=== PATIENT | male | born 1975 | race Caucasian/White ===

== ENCOUNTER 2019-01-06 08:30 | Emergency (ER) | payer OTHER ==
[2019-01-06] MEDS ORDERED: LORazepam 1 MG TAB PO STA (08:55)
--- NOTE | 2019-01-06 08:57 | ED ---
General Adult HPI - General Chief complaint: Shortness of Breath Stated complaint: Sob/anxiety Time Seen by Provider: 01/06/19 08:35 Source: patient, RN notes reviewed Mode of arrival: ambulatory Limitations: no limitations - History of Present Illness Initial comments: This is a 43-year-old male presents emergency Department stating his history of panic attacks. Patient states she was at work he started having a panic attack started getting tingling in his fingers had tightness in his chest and felt so he couldn't get a full breath. Patient states she's a little bit better now but is in the emergency department. Patient states he recently moved up here and is without his Klonopin and he believes as well as having a panic attack. Patient denies any chest pressure or heaviness. Patient denies any fever chills. Patient denies being short of breath. Patient denies any abdominal pain patient denies nausea vomiting diarrhea. Patient denies any lightheadedness or dizziness. - Related Data Home Medications Medication Instructions Recorded Confirmed No Known Home Medications 01/06/19 01/06/19 Allergies Allergy/AdvReac Type Severity Reaction Status Date / Time No Known Allergies Allergy Verified 01/06/19 09:12 Review of Systems ROS Statement: Those systems with pertinent positive or pertinent negative responses have been documented in the HPI. ROS Other: All systems not noted in ROS Statement are negative. Past Medical History Past Medical History: No Reported History History of Any Multi-Drug Resistant Organisms: None Reported Past Surgical History: No Surgical Hx Reported Past Psychological History: Anxiety Smoking Status: Current every day smoker Past Alcohol Use History: Occasional Past Drug Use History: None Reported General Exam - General Exam Comments Initial Comments: GENERAL: Patient is well-developed and well-nourished. Patient is nontoxic and well- hydrated and is in mild distress. ENT: Neck is soft and supple. No significant lymphadenopathy is noted. Oropharynx is clear. Moist mucous membranes. Neck has full range of motion without eliciting any pain. EYES: The sclera were anicteric and conjunctiva were pink and moist. Extraocular movements were intact and pupils were equal round and reactive to light. Eyelids were unremarkable. PULMONARY: Unlabored respirations. Good breath sounds bilaterally. No audible rales rhonchi or wheezing was noted. CARDIOVASCULAR: There is a regular rate and rhythm without any murmurs gallops or rubs. ABDOMEN: Soft and nontender with normal bowel sounds. No palpable organomegaly was noted. There is no palpable pulsatile mass. SKIN: Skin is clear with no lesions or rashes and otherwise unremarkable. NEUROLOGIC: Patient is alert and oriented x3. Cranial nerves II through XII are grossly intact. Motor and sensory are also intact. Normal speech, volume and content. Symmetrical smile. MUSCULOSKELETAL: Normal extremities with adequate strength and full range of motion. No lower extremity swelling or edema. No calf tenderness. LYMPHATICS: No significant lymphadenopathy is noted PSYCHIATRIC: Patient is mildly anxious Limitations: no limitations Course Vital Signs 01/06/19 08:33 Temperature 97.9 F Pulse Rate 62 Respiratory 22 Rate Blood Pressure 144/63 O2 Sat by Pulse 96 Oximetry Medical Decision Making - Medical Decision Making EKG shows normal sinus rhythm at 74 bpm [place] interval is on a 36 QRS is 90 QT interval 390 QTC is 421. Patient's EKG shows no ST segment elevation or depression or T wave abnormalities are noted. Chest x-ray showed no acute abnormalities. I gave the patient 1 of Ativan and one pack and reevaluate the patient patient states it completely relaxed when all of a sudden his have resolved. Disposition Clinical Impression: Anxiety Disposition: HOME SELF-CARE Condition: Good Instructions (If sedation given, give patient instructions): Anxiety (ED) Is patient prescribed a controlled substance at d/c from ED?: No Referrals: None,Stated [Primary Care Provider] - 1-2 days Time of Disposition: 10:20
--- NOTE | 2019-01-06 09:50 | XR ---
EXAMINATION TYPE: XR chest 2V DATE OF EXAM: 01/06/2019 COMPARISON: None HISTORY: 43-year-old male difficulty breathing TECHNIQUE: PA and lateral views FINDINGS: Heart normal size. Aorta and pulmonary vasculature within normal limits. Scattered mild interstitial densities and peribronchial cuffing. No consolidation or pleural effusion. IMPRESSION: Mild interstitial prominence could represent bronchitis or asthma. No focal infiltrate to suggest pne umonia at this time.
[2019-01-06 10:37] VITALS: BP 132/77; PULSE 80; RESP 16; TEMP 98
== END 2019-01-06 10:37 | disposition home or self-care (01) ==
LOC: EC 08:30
DX: F41.9 Anxiety disorder, unspecified (principal); F17.200 Nicotine dependence, unspecified, uncomplicated
CPT/HCPCS: 71046; 93005; 99285

== ENCOUNTER 2021-02-14 19:15 | Emergency (ER) | payer OTHER ==
[2021-02-14 19:41] VITALS: BP 152/90; PULSE 50; RESP 16; TEMP 98.6
[2021-02-14] MEDS ORDERED: NALOXONE 0.4 MG/ML 1 ML VIAL IV STA (19:53)
[2021-02-14] MEDS ORDERED: SODIUM CHLORIDE 0.9% 1,000 ML IV ONE ×2 (19:53)
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
[2021-02-14 20:46] LABS: Basophils # (A) 0.1 k/uL (0-0.2); Basophils % (A) 1 %; Eosinophils # (A) 0.2 k/uL (0-0.7); Eosinophils % (A) 2 %; HCT 45.5 % (39.0-53.0); Lymphocytes # (A) 2.5 k/uL (1.0-4.8); Lymphocytes % (A) 27 %; MCHC 35.2 g/dL (31.0-37.0); MCV 91.1 fL (80.0-100.0); Mean Platelet Volume 8.7; Monocytes # (A) 0.7 k/uL (0-1.0); Monocytes % (A) 8 %; Neutrophils # (A) 5.5 k/uL (1.3-7.7); Neutrophils % (A) 61 %; Platelet Count 210 k/uL (150-450); RBC 4.99 m/uL (4.30-5.90); RDW 13.4 % (11.5-15.5); WBC 9.1 k/uL (3.8-10.6)
--- NOTE | 2021-02-14 21:03 | CT ---
EXAMINATION TYPE: CT brain wo con DATE OF EXAM: 02/14/2021 COMPARISON: None HISTORY: ams CT DLP: 2278.4 mGycm Automated exposure control for dose reduction was used. Ventricles and sulci appear normal. There is no mass effect nor midline shift. There is no sign of in tracranial hemorrhage. The calvarium is intact skull base is intact. IMPRESSION: Negative unenhanced head CT scan.
--- NOTE | 2021-02-14 22:21 | XR ---
EXAMINATION TYPE: XR chest 2V DATE OF EXAM: 02/14/2021 COMPARISON: 01/06/2019 HISTORY: Short of breath TECHNIQUE: FINDINGS: Heart and mediastinum are normal. Lungs are clear. Diaphragm is normal. Bony thorax is inta ct. IMPRESSION: Normal chest. No change.
[2021-02-14 23:43] LABS: ALT 22 U/L (4-49); AST 26 U/L (17-59); African American GFR (CKD) >90 (>60 ml/min/1.73 sqM); Albumin 4.9 g/dL (3.5-5.0); Alcohol <10 mg/dL; Alkaline Phosphatase 86 U/L (38-126); Anion Gap 15 mmol/L; Blood Urea Nitrogen 14 mg/dL (9-20); Calcium 10.1 mg/dL (8.4-10.2); Carbon Dioxide 19 mmol/L (22-30); Chloride 105 mmol/L (98-107); Glucose 114 mg/dL (74-99); Non-African American GFR(CKD) >90 (>60 ml/min/1.73 sqM); Potassium 3.7 mmol/L (3.5-5.1); Sodium 139 mmol/L (137-145); Total Bilirubin 1.3 mg/dL (0.2-1.3); Total Protein 7.8 g/dL (6.3-8.2)
== END 2021-02-14 22:53 | disposition left against medical advice (07) ==
LOC: EC 19:15
DX: R41.82 Altered mental status, unspecified (principal); F19.10 Other psychoactive substance abuse, uncomplicated; F15.10 Other stimulant abuse, uncomplicated; F11.10 Opioid abuse, uncomplicated; F41.9 Anxiety disorder, unspecified; F17.200 Nicotine dependence, unspecified, uncomplicated
CPT/HCPCS: 93005; 80053; 82140; 85025; 71046; 70450; 99285; G0480; 80320

== ENCOUNTER 2021-02-16 11:54 | Inpatient (IN) | payer MEDICAID, OTHER ==
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
[2021-02-16] MEDS ORDERED: IBUPROFEN 600 MG TAB PO STA (14:39)
[2021-02-16] MEDS ORDERED: LORazepam 1 MG TAB PO STA (14:52)
[2021-02-16] MEDS ORDERED: OLANZapine 7.5 MG TAB PO ONE (15:24)
[2021-02-16] MEDS ORDERED: LORazepam 2 MG/ML INJ IM STA (17:23)
[2021-02-16] MEDS ORDERED: LORazepam 2 MG/ML INJ IV STA ×3 (19:51→23:17)
[2021-02-16] MEDS ORDERED: PHENobarbital SODIUM 130 MG/ML 1 ML VIAL IM STA (23:48)
[2021-02-17] MEDS ORDERED: diphenhydrAMINE 50 MG/ML 1 ML VIAL IVP STA (00:39)
[2021-02-17] MEDS ORDERED: PHENobarbital SODIUM 130 MG/ML 1 ML VIAL IV STA (02:44)
[2021-02-17] MEDS ORDERED: SODIUM CHLORIDE 0.9% IV ONE (03:00)
[2021-02-17] MEDS ORDERED: PHENOBARBITAL SODIUM IV ONE (03:00)
[2021-02-17] MEDS ORDERED: MAG HYDROX/AL HYDROX/SIMETH 30 ML CUP PO PRN (12:07)
[2021-02-17] MEDS ORDERED: MAGNESIUM HYDROXIDE 2,400 MG/10 ML CUP PO PRN (12:07)
[2021-02-17] MEDS ORDERED: LORazepam 2 MG/ML INJ IM PRN (12:12)
[2021-02-17] MEDS ORDERED: HALOPERIDOL LACTATE 5 MG/ML 1 ML VIAL IM PRN (12:12)
[2021-02-17] MEDS ORDERED: OLANZapine ODT 5 MG TAB PO STA (14:08)
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
[2021-02-17] MEDS: OLANZapine ODT 5 MG TAB PO SCH (21:49)
[2021-02-18] MEDS: LORazepam 1 MG TAB PO PRN ×2 (01:02→23:46)
[2021-02-18 01:14] VITALS: RESP 16
[2021-02-18] MEDS: haloperidoL 5 MG TAB PO PRN (01:57)
[2021-02-18] MEDS ORDERED: LORazepam 2 MG/ML INJ IM STA (03:10)
[2021-02-18] MEDS ORDERED: HALOPERIDOL LACTATE 5 MG/ML 1 ML VIAL IM ONE (03:11)
--- NOTE | 2021-02-18 04:25 | P.PN ---
Progress Note - Text Progress Note Date: 02/17/21 Patient is and the quiet room, per nursing staff is inappropriate for evaluation at this time
[2021-02-18] MEDS: OLANZapine ODT 5 MG TAB PO SCH ×2 (13:18→23:45)
[2021-02-18] MEDS: NICOTINE 21MG/24HR PATCH TRANSDERM SCH (16:07)
[2021-02-19] MEDS: haloperidoL 5 MG TAB PO PRN (02:06)
[2021-02-19] MEDS: NICOTINE 21MG/24HR PATCH TRANSDERM SCH (10:14)
[2021-02-19] MEDS: OLANZapine ODT 5 MG TAB PO SCH ×2 (10:14→22:17)
[2021-02-19] MEDS: LORazepam 1 MG TAB PO PRN ×2 (10:15→22:19)
--- NOTE | 2021-02-19 10:57 | P.PN ---
Progress Note - Text Progress Note Date: 02/18/21 Clinical Problems: Unspecified psychotic disorder, rule out methamphetamine- induced ptotic disorder, methamphetamine use disorder, rule out primary psychotic disorder such as schizophrenia or bipolar disorder Interim history: I reviewed the medical record and attempted to interview the patient. He was asleep in the quiet room with 1-1 staff in attendance. According to nursing staff he was agitated, confused and delusional throughout much the night. His management required administration of both intramuscular and oral Haldol and Ativan. He has not had a physical examination or consented to laboratory testing due to the severity of his disorganization. Mental status exam: He presented as a disheveled appearing 45-year-old male who is laying comfortably in bed to the quiet room. He was not arousable at time. Assessment: We suspect that he is acute confusional state (with delusions and hallucinations) is related to substance use including methamphetamine. However, he has not submitted urine sample for testing he continues to have periods of agitation and confusion necessitating oral and intramuscular administration of medications. Plan: He was admitted under involuntary status and we should aid with the probate court hearing. Continue with one-to-one supervision due to the severity of his confusion and agitation. Continue Zyprexa 5 mg sublingual twice a day and titrated according to clinical response and tolerance. Current show him to complete the physical examination, allow blood draw and provided a sample for urine drug testing. Obtain collateral information from friends or family if possible.
[2021-02-19 11:21] LABS: ALT 22 U/L (4-49); AST 27 U/L (17-59); African American GFR (CKD) >90 (>60 ml/min/1.73 sqM); Albumin 4.3 g/dL (3.5-5.0); Alkaline Phosphatase 71 U/L (38-126); Anion Gap 7 mmol/L; Blood Urea Nitrogen 10 mg/dL (9-20); Calcium 9.4 mg/dL (8.4-10.2); Carbon Dioxide 23 mmol/L (22-30); Chloride 107 mmol/L (98-107); Glucose 101 mg/dL (74-99); Non-African American GFR(CKD) >90 (>60 ml/min/1.73 sqM); Potassium 3.5 mmol/L (3.5-5.1); Sodium 137 mmol/L (137-145); Total Bilirubin 0.4 mg/dL (0.2-1.3); Total Protein 7.1 g/dL (6.3-8.2)
[2021-02-19 11:40] LABS: Basophils # (A) 0.1 k/uL (0-0.2); Basophils % (A) 1 %; Eosinophils # (A) 0.3 k/uL (0-0.7); Eosinophils % (A) 3 %; HCT 46.4 % (39.0-53.0); HGB 16.1 gm/dL (13.0-17.5); Lymphocytes # (A) 2.7 k/uL (1.0-4.8); Lymphocytes % (A) 27 %; MCH 32.1 pg (25.0-35.0); MCHC 34.7 g/dL (31.0-37.0); MCV 92.6 fL (80.0-100.0); Mean Platelet Volume 7.6; Monocytes # (A) 0.6 k/uL (0-1.0); Monocytes % (A) 6 %; Neutrophils # (A) 6.4 k/uL (1.3-7.7); Neutrophils % (A) 63 %; Platelet Count 249 k/uL (150-450); RBC 5.01 m/uL (4.30-5.90); RDW 14.1 % (11.5-15.5); WBC 10.2 k/uL (3.8-10.6)
--- NOTE | 2021-02-19 14:18 | P.PN ---
Progress Note - Text Progress Note Date: 02/19/21 Clinical Problems: Unspecified psychotic disorder, rule out methamphetamine- induced ptotic disorder, methamphetamine use disorder, rule out primary psychotic disorder such as schizophrenia or bipolar disorder Interim history: I reviewed the medical record and attempted to interview the patient. He was irritable but cooperative with the interview. He has been demanding discharge and became increasingly angry today when we told him he would not be discharged toda. He received milligrams Ativan and 5 mg of Zyprexa. I was unable to further clarify his admission history today. He was guarded and would not volunteer information. He would not answer whether he was using methamphetamine prior to admission. Mental status exam: He presented as a guarded and irritable 45-year-old male who is laying comfortably in bed to the quiet room. He made eye contact and appeared to attend to the interview. He had a blunted facial expression. He had psychomotor retardation but no abnormal involuntary movements. Her speech was nonspontaneous with normal rate and rhythm. His affect was irritable. He did not express suicidal ideation or wishes. He did not express homicidal ideation. He denied feeling hopeless, helpless or worthless. He ruminated about discharge. He did not express ideas reference, paranoid ideation or delusions. His thinking was concrete and associations were guarded. Assessment: We suspect that he is acute confusional state (with delusions and hua llucinations) is related to substance use including methamphetamine. He is yet to submit a urine sample for testing. Of the peers of agitation have decreased in frequency and intensity. Plan: He was admitted under involuntary status and we should aid with the probate court hearing. Continue with one-to-one supervision due to the severity of his confusion and agitation. Continue Zyprexa 5 mg sublingual twice a day and titrated according to clinical response and tolerance. Encourage him to complete the physical examination, allow blood draw and provided a sample for urine drug testing. Obtain collateral information from friends or family if possible. Consider discharge 02/20/2021
[2021-02-19 22:31] LABS: Hemoglobin A1C 5.4 % (4.0-6.0)
[2021-02-20] MEDS: haloperidoL 5 MG TAB PO PRN ×2 (01:01→20:13)
--- NOTE | 2021-02-20 03:23 | P.MDCNMH ---
History of Present Illness H&P Date: 02/20/21 Chief Complaint: Ear fullness 45-year-old male no significant past medical history Patient came in to the hospital due to feeling very anxious with paranoid ideation. Patient is being seen now as she is complaining of left ear fullness and pain he denies any nasal congestion and runny nose coughing sore throat fevers or chills he denies any chest pain or trouble breathing however he does report frequent urinary infection his ear has been bothering him for days now and left side with throbbing pain no drainage. He doesn't report any changes in hearing or tinnitus Review of Systems Pertinent positives as noted in HPI. All other systems were reviewed and are negative Past Medical History Past Medical History: No Reported History History of Any Multi-Drug Resistant Organisms: None Reported Past Surgical History: No Surgical Hx Reported Past Psychological History: Anxiety Smoking Status: Current every day smoker Past Alcohol Use History: Occasional Past Drug Use History: None Reported - Past Family History Family Family Medical History: No Reported History Medications and Allergies Home Medications Medication Instructions Recorded Confirmed Type No Known Home Medications 02/16/21 02/17/21 History Allergies Allergy/AdvReac Type Severity Reaction Status Date / Time No Known Allergies Allergy Verified 02/17/21 15:13 Physical Exam Constitutional: No acute distress, conversant, pleasant Eyes: Anicteric sclerae, moist conjunctiva, Pupils equal round reactive to light ENMT: NC/AT, otoscopic exam of the left ear shows dull tympanic membrane with slight surrounding erythema no drainage, no tenderness to palpation of the facial sinuses Oropharynx clear, no erythema, or exudates, poor dental hygiene with most of his molar teeth are recently extracted no erythema or swelling of the gums Neck: Supple, FROM, no masses, or JVD No carotid bruits No thyromegaly Lungs: Clear to auscultation Clear to percussion Normal respiratory effort, no accessory muscle use Cardiovascular: Heart regular in rate and rhythm, No murmurs, gallops, or rubs No peripheral edema Abdominal: Soft Nontender, no guarding, rebound or rigidity Abdomen moving with respiration Normoactive bowel sounds No hepatomegaly, No splenomegaly No palpable mass No abdominal wall hernia noted Skin: Normal temperature, tone, texture, turgor No induration No subcutaneous nodules No rash, lesions No ulcers Extremities: No digital cyanosis No clubbing Pedal pulses intact and symmetrical Radial pulses intact and symmetrical No calf tenderness Psychiatric: Alert and oriented to person, place and time Avoids eye contact Neuro Muscles Strength 5/5 in all 4 extremities Sensation to light touch grossly present throughout Cranial nerves II-XII grossly intact No focal sensory deficits Lymphatics: no palpable cervical or supraclavicular , or inguinal lymph nodes Cranial Nerve Examination - Cranial Nerves Cranial Nerve II- Optic: Intact Cranial Nerve III- Oculomotor: Intact Cranial Nerve IV- Trochlear: Intact Cranial Nerve V- Trigeminal: Intact Cranial Nerve - Abducens: Intact Cranial Nerve VII- Facial: Intact Cranial Nerve VIII- Auditory: Intact Cranial Nerve IX- Glossopharyngeal: Intact Cranial Nerve X- Vagus: Intact Cranial Nerve XI- Accessory: Intact Cranial Nerve XII- Hypoglossal: Intact Results CBC & Chem 7: 02/19/21 10:02 02/19/21 10:02 Labs: Abnormal Lab Results - Last 24 Hours (Table) 02/19/21 Range/Units 10:02 Creatinine 0.61 L (0.66-1.25) mg/dL Glucose 101 H (74-99) mg/dL Assessment and Plan Assessment: Acute otitis media of the left ear Amoxicillin, 500 mg 3 times a day for 7-10 days Advil for pain as needed Benadryl 25 mg every 6 hours as needed for congestion and fullness in the ear Anxiety and paranoid ideation Management per psych Labs reviewed Monitor for fever Thank you for allowing us to participate in the care of this patient. We will follow peripherally. Do not hesitate to contact us with questions. Someone can be reached from the [facility] hospitalist group at all hours of the day at [phone].
[2021-02-20] MEDS: diphenhydrAMINE 25 MG CAP PO PRN (03:29)
[2021-02-20] MEDS: AMOXICILLIN 500 MG CAP PO SCH ×4 (03:29→20:13)
[2021-02-20] MEDS: IBUPROFEN 400 MG TAB PO PRN ×4 (03:29→23:45)
[2021-02-20] MEDS: OLANZapine ODT 5 MG TAB PO SCH ×2 (09:07→20:13)
[2021-02-20] MEDS: NICOTINE 21MG/24HR PATCH TRANSDERM SCH (09:07)
[2021-02-20] MEDS: LORazepam 1 MG TAB PO PRN ×2 (09:11→23:45)
[2021-02-20] MEDS: ACETAMINOPHEN TAB 325 MG TAB PO PRN (11:48)
--- NOTE | 2021-02-20 14:12 | P.PN ---
Progress Note - Text Progress Note Date: 02/20/21 Interval History: Patient was seen in the quiet room, resting in bed. The patient is stating that he is feeling significantly better. He is unable to recall events leading to this hospitalization, and vehemently denies the use of any substances. He is currently denying any suicidal or homicidal ideation, intention, and/or plan. He is denying any auditory or visual hallucinations. He is denying any paranoia or other delusions. He reports no issues with his appetite but states that he has difficulty sleeping. He is intermittently present at [employer]. He has been adherent with his medications it is not reporting any significant side effects at this time. Mental Status Exam: General Appearance: Patient appears to be stated age is alert, directable, and cooperative. Multiple tattoos. Behavior: Patient is calmly lying in bed without any agitated behavior. Poor eye contact. Speech: Patient's speech is fluent and nonpressured. Nonspontaneous, low in volume. Mood/Affect: Mood is improving mildly, affect is congruent and constricted. Suicidality/Homicidality: Patient denies having any suicidal or homicidal ideation intent or plan. Perceptions: Patient denies any visual hallucinations [and denies any auditory hallucinations Though content/process: There is no evidence of any delusional thought content and thought process is linear and goal-directed. Memory and concentration: AOX3, grossly intact for the purposes of this session Judgment and insight: Improving mildly Vital Signs Temp 97.9 F 02/18/21 01:13 Pulse 83 02/18/21 01:13 Resp 16 02/18/21 01:13 BP 115/75 02/18/21 01:13 Pulse Ox 98 02/16/21 11:55 Assessment Acute psychosis, suspect secondary to substance abuse Plan: -Patient continues to meet criteria for inpatient psychiatric admission for symptom stabilization and safety. Patient has been petitioned and certified. He has yet to defer. -Medications: Continue Zyprexa Zydis 5 mg by mouth twice a day for psychosis/mood stabilization -When necessary Ativan and Haldol for agitation/aggression. -NRT - nicotine patch -SW on board for discharge planning. Encouraged the patient to participate in [employer].
[2021-02-21] MEDS: NICOTINE 21MG/24HR PATCH TRANSDERM SCH ×2 (08:04→16:34)
[2021-02-21] MEDS: AMOXICILLIN 500 MG CAP PO SCH ×3 (08:05→22:39)
[2021-02-21] MEDS: OLANZapine ODT 5 MG TAB PO SCH ×2 (08:05→21:15)
[2021-02-21] MEDS: ACETAMINOPHEN TAB 325 MG TAB PO PRN ×2 (08:07→13:45)
--- NOTE | 2021-02-21 09:52 | P.PN ---
Progress Note - Text Progress Note Date: 02/21/21 Interval History: Patient was seen in his room and was resting in bed without any agitation. Cu rrently the patient is quite somnolent and difficult to arouse. He does respond with one-word replies. He denies any suicidal or homicidal ideation, intention, and/or plan. He reports no auditory or visual hallucinations. He denies any paranoia or delusions. He reports no issues with his medications aside from mild sedation. He continues to be isolative to himself. He has yet to defer. Mental Status Exam: General Appearance: Patient appears to be stated age is somnolent, but directable, and cooperative. Multiple tattoos. Behavior: Patient is calmly lying in bed without any agitated behavior. Poor eye contact. Speech: Patient's speech is fluent and nonpressured. Nonspontaneous, low in volume. One-word responses. Mood/Affect: Mood is improving mildly, affect is congruent and constricted. Suicidality/Homicidality: Patient denies having any suicidal or homicidal ideation intent or plan. Perceptions: Patient denies any visual hallucinations and denies any auditory hallucinations Though content/process: There is no evidence of any delusional thought content and thought process is linear and goal-directed. Memory and concentration: AOX3, grossly intact for the purposes of this session Judgment and insight: Improving mildly Vital Signs Temp 97.9 F 02/18/21 01:13 Pulse 83 02/18/21 01:13 Resp 16 02/18/21 01:13 BP 115/75 02/18/21 01:13 Pulse Ox 98 02/16/21 11:55 Assessment Acute psychosis, suspect secondary to substance abuse Plan: -Patient continues to meet criteria for inpatient psychiatric admission for symptom stabilization and safety. Patient has been petitioned and certified. He has yet to defer. Anticipate discharge once patient defers. -Medications: Continue Zyprexa Zydis 5 mg by mouth twice a day for psychosis/mood stabilizati on -When necessary Ativan and Haldol for agitation/aggression. -NRT - nicotine patch -SW on board for discharge planning. Encouraged the patient to participate in milieu.
[2021-02-21] MEDS: LORazepam 1 MG TAB PO PRN ×2 (13:46→23:25)
[2021-02-21] MEDS: IBUPROFEN 400 MG TAB PO PRN ×2 (15:05→22:40)
[2021-02-21] MEDS: haloperidoL 5 MG TAB PO PRN (16:49)
[2021-02-21] MEDS: diphenhydrAMINE 25 MG CAP PO PRN (22:40)
[2021-02-22] MEDS: NICOTINE 21MG/24HR PATCH TRANSDERM SCH (07:54)
[2021-02-22] MEDS: OLANZapine ODT 5 MG TAB PO SCH (07:54)
[2021-02-22] MEDS: AMOXICILLIN 500 MG CAP PO SCH ×3 (07:54→22:00)
[2021-02-22] MEDS: IBUPROFEN 400 MG TAB PO PRN ×3 (07:55→22:00)
[2021-02-22] MEDS: LORazepam 1 MG TAB PO PRN ×3 (07:55→22:00)
--- NOTE | 2021-02-22 09:45 | P.PN ---
Progress Note - Text Progress Note Date: 02/22/21 Interval History: Patient was seen in his room and was resting in bed without any agitation. Pat reernestina states he plans to defer mental health court tomorrow. He is reporting elevated anxiety and difficulty sleeping. He endorses mild paranoia. He does ask if his zyprexa can be increased. He is otherwise not reporting any suicidal or homicidal ideation, intention, and/or plan. He is not reporting any auditory or visual hallucinations. He has been adherent with his medications and is not reporting any side effects at this time. Mental Status Exam: General Appearance: Patient appears to be stated age is alert, awake and cooperative. Multiple tattoos. Behavior: Patient is calmly lying in bed without any agitated behavior. Good eye contact. Speech: Patient's speech is fluent and nonpressured. Nonspontaneous, low in volume. Mood/Affect: Mood is improving mildly, affect is congruent and constricted. Suicidality/Homicidality: Patient denies having any suicidal or homicidal ideation intent or plan. Perceptions: Patient denies any visual hallucinations and denies any auditory hallucinations Though content/process: There is no evidence of any delusional thought content and thought process is linear and goal-directed. Memory and concentration: AOX3, grossly intact for the purposes of this session Judgment and insight: Improving mildly Vital Signs Temp 97.8 F 02/21/21 23:31 Pulse 96 02/21/21 23:31 Resp 16 02/21/21 23:31 BP 120/80 02/21/21 23:31 Pulse Ox 98 02/16/21 11:55 Assessment Acute psychosis, suspect secondary to substance abuse Plan: -Patient continues to meet criteria for inpatient psychiatric admission for symptom stabilization and safety. Patient has been petitioned and certified. He has yet to defer. Anticipate discharge once patient defers. -Medications: Increase zyprexa zydis to 5 mg in the morning and 10 mg at bedtime for psychosis/mood stabilization -When necessary Ativan and Haldol for agitation/aggression. -NRT - nicotine patch -SW on board for discharge planning. Encouraged the patient to participate in milieu.
[2021-02-22] MEDS ORDERED: OLANZapine ODT 10 MG TAB PO SCH (21:00)
[2021-02-23] MEDS: haloperidoL 5 MG TAB PO PRN ×2 (00:26→13:27)
[2021-02-23] MEDS: diphenhydrAMINE 25 MG CAP PO PRN (01:47)
[2021-02-23 07:19] VITALS: BP 118/59; PULSE 99; TEMP 97.7
[2021-02-23] MEDS: NICOTINE 21MG/24HR PATCH TRANSDERM SCH (07:48)
[2021-02-23] MEDS: ACETAMINOPHEN TAB 325 MG TAB PO PRN (07:48)
[2021-02-23] MEDS: AMOXICILLIN 500 MG CAP PO SCH (08:31)
[2021-02-23] MEDS: LORazepam 1 MG TAB PO PRN (08:31)
[2021-02-23] MEDS ORDERED: OLANZapine ODT 5 MG TAB PO SCH (09:00)
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
== END 2021-02-23 15:41 | disposition home or self-care (01) | DRG 885 ==
LOC: EC 11:54 → 3MHU 02-17 12:02
PROVIDERS: ADMIT Psychiatry & Neurology Psychiatry; ATTEND Psychiatry & Neurology Psychiatry
DX: F23 Brief psychotic disorder (principal); F11.10 Opioid abuse, uncomplicated; F15.10 Other stimulant abuse, uncomplicated; F17.200 Nicotine dependence, unspecified, uncomplicated; F41.9 Anxiety disorder, unspecified; Z78.1 Physical restraint status; Z20.822 Contact with and (suspected) exposure to COVID-19
CPT/HCPCS: 80053; 82075; 83036; 84443; 85025; 87635; 99285

== ENCOUNTER 2021-03-12 20:02 | Observation (INO) | payer OTHER ==
[2021-03-12 20:12] LABS: Glucose,Whole Blood 73 mg/dL (75-99)
[2021-03-12 21:18] LABS: ALT 37 U/L (4-49); AST 40 U/L (17-59); African American GFR (CKD) >90 (>60 ml/min/1.73 sqM); Albumin 4.5 g/dL (3.5-5.0); Alcohol <10 mg/dL; Alkaline Phosphatase 81 U/L (38-126); Anion Gap 8 mmol/L; Blood Urea Nitrogen 3 mg/dL (9-20); Calcium 9.8 mg/dL (8.4-10.2); Carbon Dioxide 26 mmol/L (22-30); Chloride 109 mmol/L (98-107); Glucose 71 mg/dL (74-99); Non-African American GFR(CKD) >90 (>60 ml/min/1.73 sqM); Potassium 4.4 mmol/L (3.5-5.1); Sodium 143 mmol/L (137-145); Total Bilirubin 0.3 mg/dL (0.2-1.3); Total Protein 7.1 g/dL (6.3-8.2)
[2021-03-12 21:19] LABS: Basophils % (A) 0 %; Eosinophils # (A) 0.2 k/uL (0-0.7); Eosinophils % (A) 4 %; HCT 39.8 % (39.0-53.0); HGB 13.9 gm/dL (13.0-17.5); Lymphocytes # (A) 1.9 k/uL (1.0-4.8); Lymphocytes % (A) 34 %; MCH 33.2 pg (25.0-35.0); MCV 94.9 fL (80.0-100.0); Mean Platelet Volume 6.7; Monocytes # (A) 0.5 k/uL (0-1.0); Monocytes % (A) 8 %; Neutrophils # (A) 2.9 k/uL (1.3-7.7); Neutrophils % (A) 50 %; Platelet Count 321 k/uL (150-450); RBC 4.19 m/uL (4.30-5.90); RDW 14.3 % (11.5-15.5); WBC 5.6 k/uL (3.8-10.6)
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
[2021-03-12 22:07] LABS: Magnesium 2.1 mg/dL (1.6-2.3); Phosphorus 3.7 mg/dL (2.5-4.5)
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
[2021-03-12] MEDS ORDERED: SODIUM CHLORIDE 0.9% 1,000 ML IV ONE (23:39)
[2021-03-13 07:54] VITALS: BP 106/71; PULSE 71; RESP 18; TEMP 97.4
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
== END 2021-03-13 12:33 | disposition home or self-care (01) ==
LOC: EC 20:02 → 6NMEDSUR 23:39
PROVIDERS: ADMIT Hospitalist; ATTEND Hospitalist
DX: R41.82 Altered mental status, unspecified (principal); F15.10 Other stimulant abuse, uncomplicated; F13.10 Sedative, hypnotic or anxiolytic abuse, uncomplicated; F11.10 Opioid abuse, uncomplicated; R40.0 Somnolence; V47.5XXA Car driver injured in collision with fixed or stationary object in traffic accident, initial encounter; Y92.410 Unspecified street and highway as the place of occurrence of the external cause; F17.200 Nicotine dependence, unspecified, uncomplicated; F41.9 Anxiety disorder, unspecified; M54.9 Dorsalgia, unspecified; Z79.899 Other long term (current) drug therapy; Z86.59 Personal history of other mental and behavioral disorders
CPT/HCPCS: 96360; 96361; 99285; 36415; 93005; 80053; 82550; 83735; 84100; 84484; 85025; 80320; 72125; 70450; 71260; 74177; G0378; Q9967

== ENCOUNTER 2021-04-12 08:32 | Emergency (ER) | payer OTHER ==
[2021-04-12 08:40] VITALS: TEMP 98.3
[2021-04-12] MEDS ORDERED: SODIUM CHLORIDE 0.9% 1,000 ML IV STA (08:43)
--- NOTE | 2021-04-12 08:53 | ED ---
General Adult HPI - General Chief complaint: Overdose Stated complaint: overdose Time Seen by Provider: 04/12/21 08:35 Source: patient, EMS Mode of arrival: EMS Limitations: no limitations - History of Present Illness Initial comments: Patient is a 45-year-old male who presents to the emergency department as a possible overdose. EMS provided the history. They state that the patient was going into the local convenience store. Staff are very familiar with the patient may state that he was acting odd. He then crouch down onto the floor and went unresponsive. EMS arrived and found that he had respirations of 4. His oxygen saturation was 60%. They did give him one of intranasal Narcan with improvement in the patient's mentation. He denies taking any illicit drugs today. Denies taking any prescription medications other than his Seroquel which he took last night. He has been on this medication for a month and denies no previous issues with it. He remembers going into the convenience store to get a Slurpie and use the DAVIS. States he does not remember much after this. Denies previous history of cardiac disease. The remainder of the HPI is limited - Related Data Previous Rx's Medication Instructions Recorded Nicotine 21Mg/24Hr Patch [Habitrol] 1 patch TRANSDERM DAILY 30 Days 02/23/21 patch OLANZapine ODT [ZyPREXA Zydis] 5 mg PO DAILY 30 Days tab 02/23/21 OLANZapine ODT [ZyPREXA Zydis] 10 mg PO HS 30 Days tab 02/23/21 Allergies Allergy/AdvReac Type Severity Reaction Status Date / Time No Known Allergies Allergy Verified 04/12/21 08:40 Review of Systems ROS Statement: Those systems with pertinent positive or pertinent negative responses have been documented in the HPI. ROS Other: All systems not noted in ROS Statement are negative. Past Medical History Past Medical History: No Reported History History of Any Multi-Drug Resistant Organisms: None Reported Past Surgical History: No Surgical Hx Reported Past Anesthesia/Blood Transfusion Reactions: No Reported Reaction Past Psychological History: Anxiety Smoking Status: Current every day smoker Past Drug Use History: Marijuana - Past Family History Family Family Medical History: No Reported History General Exam Limitations: altered mental status General appearance: alert, in no apparent distress, other (appears to have some sedation. Mild slurred speech. a+ox3. ) Head exam: Present: atraumatic, normocephalic, normal inspection Eye exam: Present: normal appearance, PERRL, EOMI. Absent: scleral icterus, conjunctival injection, periorbital swelling ENT exam: Present: normal exam, mucous membranes moist Neck exam: Present: normal inspection. Absent: tenderness, meningismus, lymphadenopathy Respiratory exam: Present: normal lung sounds bilaterally. Absent: respiratory distress, wheezes, rales, rhonchi, stridor Cardiovascular Exam: Present: normal rhythm, tachycardia Extremities exam: Present: normal inspection, full ROM, normal capillary refill. Absent: tenderness, pedal edema, joint swelling, calf tenderness Neurological exam: Present: alert, oriented X3, CN II-XII intact Skin exam: Present: warm, diaphoretic Course Vital Signs 04/12/21 04/12/21 04/12/21 08:33 09:07 09:33 Temperature 98.3 F Pulse Rate 120 H 105 H 94 Pulse Rate [ Nutrition Associate ] Respiratory 12 14 15 Rate Blood Pressure 142/115 122/78 124/82 O2 Sat by Pulse 97 95 93 L Oximetry 04/12/21 04/12/21 04/12/21 10:13 10:18 11:05 Temperature 98.3 F Pulse Rate 89 87 Pulse Rate [ 86 Nutrition Associate ] Respiratory 15 15 Rate Blood Pressure 113/77 110/77 O2 Sat by Pulse 94 L 95 Oximetry EKG Findings - EKG Comments: EKG Findings:: EKG demonstrates a sinus tachycardia with a ventricular rate of 109. KS interval 148. QRS 94. QTC of 47. No acute ST segment elevations or depressions Medical Decision Making - Medical Decision Making Upon arrival the patient is placed into room #1. A thorough history and physical exam is performed. Patient is alert and oriented at this time. We did request laboratory studies, 12-lead EKG and a chest x-ray. Patient does comply. Laboratory studies are reviewed. CK is 188. Chest x-ray demonstrates no acute process. Patient is observed for 2 hours. Requesting a urine sample however the patient is refusing. He is also refusing straight cath. He does admit that last night he used heroin, methamphetamines, Xanax, THC and took his Seroquel (prescribed dose). Patient does remain alert and oriented after 2 hours of observation and therefore will be discharged home. Patient does have an appo intment at [facility] at noon. He is instructed to follow-up with his primary care doctor. Stop using illicit drugs. Return to the emergency room for any new or worsening symptoms - Lab Data Result diagrams: 04/12/21 08:45 04/12/21 08:45 Lab Results 04/12/21 04/12/21 04/12/21 Range/Units 08:45 08:45 08:45 WBC 8.0 (3.8-10.6) k/uL RBC 4.00 L (4.30-5.90) m/uL Hgb 13.2 (13.0-17.5) gm/dL Hct 39.0 (39.0-53.0) % MCV 97.5 (80.0-100.0) fL MCH 32.9 (25.0-35.0) pg MCHC 33.8 (31.0-37.0) g/dL RDW 14.3 (11.5-15.5) % Plt Count 324 (150-450) k/uL MPV 7.0 Neutrophils % 46 % Lymphocytes % 38 % Monocytes % 7 % Eosinophils % 6 % Basophils % 1 % Neutrophils # 3.7 (1.3-7.7) k/uL Lymphocytes # 3.1 (1.0-4.8) k/uL Monocytes # 0.6 (0-1.0) k/uL Eosinophils # 0.5 (0-0.7) k/uL Basophils # 0.1 (0-0.2) k/uL Poikilocytosis Slight Sodium 138 (137-145) mmol/L Potassium 3.8 (3.5-5.1) mmol/L Chloride 104 (98-107) mmol/L Carbon Dioxide 26 (22-30) mmol/L Anion Gap 8 mmol/L BUN 9 (9-20) mg/dL Creatinine 0.85 (0.66-1.25) mg/dL Est GFR (CKD-EPI)AfAm >90 (>60 ml/min/1.73 sqM) Est GFR (CKD-EPI)NonAf >90 (>60 ml/min/1.73 sqM) Glucose 80 (74-99) mg/dL Plasma Lactic Acid Joni 1.1 (0.7-2.0) mmol/L Calcium 9.1 (8.4-10.2) mg/dL Total Bilirubin 0.6 (0.2-1.3) mg/dL AST 33 (17-59) U/L ALT 23 (4-49) U/L Alkaline Phosphatase 60 (38-126) U/L Creatine Kinase 188 H (55-170) U/L Troponin I (0.000-0.034) ng/mL Total Protein 6.8 (6.3-8.2) g/dL Albumin 4.2 (3.5-5.0) g/dL Salicylates <1.0 mg/dL Acetaminophen <10.0 ug/mL Serum Alcohol <10 mg/dL 04/12/21 Range/Units 08:45 WBC (3.8-10.6) k/uL RBC (4.30-5.90) m/uL Hgb (13.0-17.5) gm/dL Hct (39.0-53.0) % MCV (80.0-100.0) fL MCH (25.0-35.0) pg MCHC (31.0-37.0) g/dL RDW (11.5-15.5) % Plt Count (150-450) k/uL MPV Neutrophils % % Lymphocytes % % Monocytes % % Eosinophils % % Basophils % % Neutrophils # (1.3-7.7) k/uL Lymphocytes # (1.0-4.8) k/uL Monocytes # (0-1.0) k/uL Eosinophils # (0-0.7) k/uL Basophils # (0-0.2) k/uL Poikilocytosis Sodium (137-145) mmol/L Potassium (3.5-5.1) mmol/L Chloride (98-107) mmol/L Carbon Dioxide (22-30) mmol/L Anion Gap mmol/L BUN (9-20) mg/dL Creatinine (0.66-1.25) mg/dL Est GFR (CKD-EPI)AfAm (>60 ml/min/1.73 sqM) Est GFR (CKD-EPI)NonAf (>60 ml/min/1.73 sqM) Glucose (74-99) mg/dL Plasma Lactic Acid Joni (0.7-2.0) mmol/L Calcium (8.4-10.2) mg/dL Total Bilirubin (0.2-1.3) mg/dL AST (17-59) U/L ALT (4-49) U/L Alkaline Phosphatase (38-126) U/L Creatine Kinase (55-170) U/L Troponin I <0.012 (0.000-0.034) ng/mL Total Protein (6.3-8.2) g/dL Albumin (3.5-5.0) g/dL Salicylates mg/dL Acetaminophen ug/mL Serum Alcohol mg/dL Disposition Clinical Impression: Altered mental status, Polysubstance abuse Disposition: HOME SELF-CARE Condition: Stable Instructions (If sedation given, give patient instructions): Adult Overdose (ED) Additional Instructions: Please stop using ilicit drugs. See your doctor in 2-4 days. Return to the ED for any new or worsening symptoms. Is patient prescribed a controlled substance at d/c from ED?: No Referrals: None,Stated [Primary Care Provider] - 1-2 days Time of Disposition: 10:36
[2021-04-12 09:17] LABS: Basophils # (A) 0.1 k/uL (0-0.2); Basophils % (A) 1 %; Eosinophils # (A) 0.5 k/uL (0-0.7); Eosinophils % (A) 6 %; HGB 13.2 gm/dL (13.0-17.5); Lymphocytes # (A) 3.1 k/uL (1.0-4.8); Lymphocytes % (A) 38 %; MCH 32.9 pg (25.0-35.0); MCHC 33.8 g/dL (31.0-37.0); MCV 97.5 fL (80.0-100.0); Monocytes # (A) 0.6 k/uL (0-1.0); Monocytes % (A) 7 %; Neutrophils # (A) 3.7 k/uL (1.3-7.7); Neutrophils % (A) 46 %; Platelet Count 324 k/uL (150-450); Poikilocytosis Slight; RDW 14.3 % (11.5-15.5)
--- NOTE | 2021-04-12 09:32 | XR ---
EXAMINATION TYPE: XR chest 2V DATE OF EXAM: 04/12/2021 COMPARISON: Chest x-ray February 14, 2021. CT chest March 12, 2021. HISTORY: Hypoxia. TECHNIQUE: Frontal and lateral views of the chest are obtained. FINDINGS: Stable somewhat low lung volumes. There is no suspicious new focal air space opacity, pleur al effusion, or pneumothorax seen. The cardiac silhouette size remains within normal limits. The o sseous structures are intact. Overlying EKG leads on current study. IMPRESSION: No acute cardiopulmonary process. No significant change from prior studies.
[2021-04-12 09:34] VITALS: RESP 15
[2021-04-12 09:39] LABS: ALT 23 U/L (4-49); AST 33 U/L (17-59); Acetaminophen <10.0 ug/mL; African American GFR (CKD) >90 (>60 ml/min/1.73 sqM); Albumin 4.2 g/dL (3.5-5.0); Alcohol <10 mg/dL; Alkaline Phosphatase 60 U/L (38-126); Anion Gap 8 mmol/L; Blood Urea Nitrogen 9 mg/dL (9-20); Calcium 9.1 mg/dL (8.4-10.2); Carbon Dioxide 26 mmol/L (22-30); Chloride 104 mmol/L (98-107); Creatine Kinase 188 U/L (55-170); Glucose 80 mg/dL (74-99); Non-African American GFR(CKD) >90 (>60 ml/min/1.73 sqM); Potassium 3.8 mmol/L (3.5-5.1); Salicylate <1.0 mg/dL; Sodium 138 mmol/L (137-145); Total Bilirubin 0.6 mg/dL (0.2-1.3); Total Protein 6.8 g/dL (6.3-8.2)
[2021-04-12 11:06] VITALS: BP 110/77; PULSE 87
== END 2021-04-12 11:06 | disposition home or self-care (01) ==
LOC: EC 08:32
DX: F19.10 Other psychoactive substance abuse, uncomplicated (principal); R41.82 Altered mental status, unspecified; F17.200 Nicotine dependence, unspecified, uncomplicated; F12.90 Cannabis use, unspecified, uncomplicated; F41.9 Anxiety disorder, unspecified; Z79.899 Other long term (current) drug therapy
CPT/HCPCS: 36415; 93005; 80053; 82550; 83605; 84484; 85025; 80143; 80179; 71046; 96360; 96361; 99285; G0480; 80320

== ENCOUNTER 2023-04-30 12:05 | Emergency (ER) | payer OTHER ==
[2023-04-30] MEDS ORDERED: SODIUM CHLORIDE 0.9% 1,000 ML IV STA (12:22)
--- NOTE | 2023-04-30 12:28 | ED ---
General Adult HPI - General Stated complaint: AMS Time Seen by Provider: 04/30/23 12:09 Source: patient, EMS, RN notes reviewed, old records reviewed Mode of arrival: EMS Limitations: no limitations - History of Present Illness Initial comments: Patient is a pleasant 47-year-old male presenting to the emergency room with concern for. Patient states he was walking to the drugstore to get some vomiting. Patient states he works third shift and has not slept yet. Patient admits to sitting down. Patient reportedly was somewhat altered. Patient is unclear if he could've passed out or not. Patient is unclear if he has a history of similar symptoms previously. Patient denies drug use other than marijuana use. Patient denies any injury. No headache or confusion. No neck or back pain. No chest pain or abdominal pain. - Related Data Previous Rx's Medication Instructions Recorded Nicotine 21Mg/24Hr Patch [Habitrol] 1 patch TRANSDERM DAILY 30 Days 02/23/21 patch OLANZapine ODT [ZyPREXA Zydis] 5 mg PO DAILY 30 Days tab 02/23/21 OLANZapine ODT [ZyPREXA Zydis] 10 mg PO HS 30 Days tab 02/23/21 Allergies Allergy/AdvReac Type Severity Reaction Status Date / Time No Known Allergies Allergy Verified 04/12/21 08:40 Review of Systems ROS Statement: Those systems with pertinent positive or pertinent negative responses have been documented in the HPI. ROS Other: All systems not noted in ROS Statement are negative. Constitutional: Denies: fever Eyes: Denies: eye pain ENT: Denies: ear pain Respiratory: Denies: cough Cardiovascular: Denies: chest pain Endocrine: Denies: fatigue Gastrointestinal: Denies: abdominal pain Musculoskeletal: Denies: back pain Neurological: Reports: as per HPI. Denies: headache, weakness Past Medical History Past Medical History: No Reported History History of Any Multi-Drug Resistant Organisms: None Reported Past Surgical History: No Surgical Hx Reported Past Anesthesia/Blood Transfusion Reactions: No Reported Reaction Past Psychological History: Anxiety Smoking Status: Current every day smoker Past Drug Use History: Marijuana - Past Family History Family Family Medical History: No Reported History General Exam Limitations: no limitations General appearance: alert, in no apparent distress Head exam: Present: atraumatic Eye exam: Present: normal appearance, PERRL, EOMI ENT exam: Present: normal oropharynx Neck exam: Present: normal inspection. Absent: tenderness Respiratory exam: Present: normal lung sounds bilaterally Cardiovascular Exam: Present: regular rate, normal rhythm GI/Abdominal exam: Present: soft. Absent: tenderness, guarding Extremities exam: Present: normal inspection. Absent: pedal edema, calf tenderness Neurological exam: Present: alert, oriented X3, CN II-XII intact. Absent: motor sensory deficit Expanded Neurological exam: Present: protecting the airway Patient oriented to: Present: person, place, time Cranial nerves: EOM's Intact: Normal Motor strength exam: RUE: 5, LUE: 5, RLE: 5, LLE: 5 Eye Response: (4) open spontaneously Motor Response: (6) obeys commands Verbal Response: (5) oriented Psychiatric exam: Present: normal affect, normal mood Skin exam: Present: normal color Course Vital Signs 04/30/23 12:08 Temperature 98.4 F Pulse Rate 112 H Respiratory 18 Rate Blood Pressure 111/76 O2 Sat by Pulse 90 L Oximetry Medical Decision Making - Medical Decision Making Was pt. sent in by a medical professional or institution (Dr. PA, REHABILITATION NURSE, urgent care, hospital, or group home...) When possible be specific @ -No Did you speak to anyone other than the patient for history (EMS, parent, family, police, friend...)? What history was obtained from this source @ -No Did you review nursing and triage notes (agree or disagree)? Why? @ -I reviewed and agree with nursing and triage notes Were old charts reviewed (outside hosp., previous admission, EMS record, old EKG, old radiological studies, urgent care reports/EKG's, group home records)? Report findings @ -No old charts were reviewed Differential Diagnosis (chest pain, altered mental status, abdominal pain women, abdominal pain men, vaginal bleeding, weakness, fever, dyspnea, syncope, h eadache, dizziness, GI bleed, back pain, seizure, CVA, palpatations, mental health, musculoskeletal)? @ -Differential Altered Mental Status: Hypoglycemia, DKA, hypercapnia, ETOH, overdose, CO poisoning, trauma, myxedema coma, HTN encephalopathy, infection, encephalitis, psychosis, intercranial hemorrhage, hepatic encephalopathy, meningitis, CVA, this is not meant to be an all-inclusive list EKG interpreted by me (3pts min.). @ -As above X-rays interpreted by me (1pt min.). @ -None done CT interpreted by me (1pt min.). @ -CT brain does not reveal large hemorrhage or mass U/S interpreted by me (1pt. min.). @ -None done What testing was considered but not performed or refused? (CT, X-rays, U/S, labs)? Why? @ -None What meds were considered but not given or refused? Why? @ -None Did you discuss the management of the patient with other professionals (professionals i.e. , PA, REHABILITATION NURSE, lab, RT, psych nurse, social media community manager, er registrar, teacher, licensed loan officer, case coordinator)? Give summary @ -No Was smoking cessation discussed for >3mins.? @ -No Was critical care preformed (if so, how long)? @ -No Were there social determinants of health that impacted care today? How? (Homelessness, low income, unemployed, alcoholism, drug addiction, transportation, low edu. Level, literacy, decrease access to med. care, prison, rehab)? @ -No Was there de-escalation of care discussed even if they declined (Discuss DNR or withdrawal of care, Hospice)? DNR status @ -Patient left without completing workup What co-morbidities impacted this encounter? (DM, HTN, Smoking, COPD, CAD, Cancer, CVA, ARF, Chemo, Hep., AIDS, mental health diagnosis, sleep apnea, m orbid obesity)? @ -None Was patient admitted / discharged? Hospital course, mention meds given and route, prescriptions, significant lab abnormalities, going to OR and other pertinent info. @ -Patient was alert and oriented 3. Patient did have steady gait which was visualized by myself. Patient refuses to complete workup and states his right is here. Patient cannot be held against his will. Undiagnosed new problem with uncertain prognosis? @ -Etiology of change in mental status is unclear at this time. Drug Therapy requiring intensive monitoring for toxicity (Heparin, Nitro, Insulin, Cardizem)? @ -No Were any procedures done? @ -No Diagnosis/symptom? @ -Altered mental status Acute, or Chronic, or Acute on Chronic? @ -Acute Uncomplicated (without systemic symptoms) or Complicated (systemic symptoms)? @ -default Side effects of treatment? @ -No Exacerbation, Progression, or Severe Exacerbation? @ -No Poses a threat to life or bodily function? How? (Chest pain, [place], [place], pneumonia, PE, COPD, DKA, ARF, appy, cholecystitis, CVA, Diverticulitis, Homicidal, Suicidal, threat to staff... and all critical care pts) @ -No - Lab Data Result diagrams: 04/30/23 12:30 04/30/23 12:30 Lab Results 04/30/23 04/30/23 04/30/23 Range/Units 12:24 12:30 12:30 WBC 8.0 (3.8-10.6) k/uL RBC 4.30 (4.30-5.90) m/uL Hgb 14.3 (13.0-17.5) gm/dL Hct 41.6 (39.0-53.0) % MCV 96.6 (80.0-100.0) fL MCH 33.1 (25.0-35.0) pg MCHC 34.3 (31.0-37.0) g/dL RDW 13.4 (11.5-15.5) % Plt Count 198 (150-450) k/uL MPV 8.0 Neutrophils % 72 % Lymphocytes % 20 % Monocytes % 5 % Eosinophils % 3 % Basophils % 0 % Neutrophils # 5.8 (1.3-7.7) k/uL Lymphocytes # 1.6 (1.0-4.8) k/uL Monocytes # 0.4 (0-1.0) k/uL Eosinophils # 0.2 (0-0.7) k/uL Basophils # 0.0 (0-0.2) k/uL Sodium 141 (137-145) mmol/L Potassium 3.7 (3.5-5.1) mmol/L Chloride 109 H (98-107) mmol/L Carbon Dioxide 22 (22-30) mmol/L Anion Gap 10 mmol/L BUN 10 (9-20) mg/dL Creatinine 1.19 (0.66-1.25) mg/dL Est GFR (CKD-EPI)AfAm 84 (>60 ml/min/1.73 sqM) Est GFR (CKD-EPI)NonAf 73 (>60 ml/min/1.73 sqM) Glucose 196 H (74-99) mg/dL Plasma Lactic Acid Joni (0.7-2.0) mmol/L Calcium 8.5 (8.4-10.2) mg/dL Magnesium 1.9 (1.6-2.3) mg/dL Total Bilirubin 0.7 (0.2-1.3) mg/dL AST 41 (17-59) U/L ALT 19 (4-49) U/L Alkaline Phosphatase 68 (38-126) U/L Total Protein 7.0 (6.3-8.2) g/dL Albumin 4.2 (3.5-5.0) g/dL Serum Alcohol <10 mg/dL Coronavirus (PCR) Not Detected (Not Detectd) 04/30/23 Range/Units 12:30 WBC (3.8-10.6) k/uL RBC (4.30-5.90) m/uL Hgb (13.0-17.5) gm/dL Hct (39.0-53.0) % MCV (80.0-100.0) fL MCH (25.0-35.0) pg MCHC (31.0-37.0) g/dL RDW (11.5-15.5) % Plt Count (150-450) k/uL MPV Neutrophils % % Lymphocytes % % Monocytes % % Eosinophils % % Basophils % % Neutrophils # (1.3-7.7) k/uL Lymphocytes # (1.0-4.8) k/uL Monocytes # (0-1.0) k/uL Eosinophils # (0-0.7) k/uL Basophils # (0-0.2) k/uL Sodium (137-145) mmol/L Potassium (3.5-5.1) mmol/L Chloride (98-107) mmol/L Carbon Dioxide (22-30) mmol/L Anion Gap mmol/L BUN (9-20) mg/dL Creatinine (0.66-1.25) mg/dL Est GFR (CKD-EPI)AfAm (>60 ml/min/1.73 sqM) Est GFR (CKD-EPI)NonAf (>60 ml/min/1.73 sqM) Glucose (74-99) mg/dL Plasma Lactic Acid Joni 1.7 (0.7-2.0) mmol/L Calcium (8.4-10.2) mg/dL Magnesium (1.6-2.3) mg/dL Total Bilirubin (0.2-1.3) mg/dL AST (17-59) U/L ALT (4-49) U/L Alkaline Phosphatase (38-126) U/L Total Protein (6.3-8.2) g/dL Albumin (3.5-5.0) g/dL Serum Alcohol mg/dL Coronavirus (PCR) (Not Detectd) Disposition Clinical Impression: Altered mental status Disposition: LEFT AGAINST MEDICAL ADVICE Additional Instructions: Patient left without discharge instructions Is patient prescribed a controlled substance at d/c from ED?: No Referrals: Wyatt Mcginnis MD [STAFF PHYSICIAN] - 1-2 days Time of Disposition: 15:05
[2023-04-30 12:40] VITALS: BP 111/76; PULSE 112; RESP 18; TEMP 98.4
[2023-04-30 12:47] LABS: Basophils % (A) 0 %; Eosinophils # (A) 0.2 k/uL (0-0.7); Eosinophils % (A) 3 %; HCT 41.6 % (39.0-53.0); HGB 14.3 gm/dL (13.0-17.5); Lymphocytes # (A) 1.6 k/uL (1.0-4.8); Lymphocytes % (A) 20 %; MCH 33.1 pg (25.0-35.0); MCHC 34.3 g/dL (31.0-37.0); MCV 96.6 fL (80.0-100.0); Monocytes # (A) 0.4 k/uL (0-1.0); Monocytes % (A) 5 %; Neutrophils # (A) 5.8 k/uL (1.3-7.7); Neutrophils % (A) 72 %; Platelet Count 198 k/uL (150-450); RDW 13.4 % (11.5-15.5)
[2023-04-30 12:58] LABS: ALT 19 U/L (4-49); African American GFR (CKD) 84 (>60 ml/min/1.73 sqM); Albumin 4.2 g/dL (3.5-5.0); Alcohol <10 mg/dL; Anion Gap 10 mmol/L; Blood Urea Nitrogen 10 mg/dL (9-20); Calcium 8.5 mg/dL (8.4-10.2); Carbon Dioxide 22 mmol/L (22-30); Chloride 109 mmol/L (98-107); Glucose 196 mg/dL (74-99); Non-African American GFR(CKD) 73 (>60 ml/min/1.73 sqM); Potassium 3.7 mmol/L (3.5-5.1); Sodium 141 mmol/L (137-145); Total Bilirubin 0.7 mg/dL (0.2-1.3)
[2023-04-30 12:59] LABS: AST 41 U/L (17-59); Alkaline Phosphatase 68 U/L (38-126); Magnesium 1.9 mg/dL (1.6-2.3)
--- NOTE | 2023-04-30 14:11 | CT ---
EXAMINATION TYPE: CT brain wo con CT DLP: 1143.6 mGycm, Automated exposure control for dose reduction was used. DATE OF EXAM: 04/30/2023 1:49 PM COMPARISON: 03/12/2021. CLINICAL INDICATION:Male, 47 years old with history of ams, AMS TECHNIQUE: Brain: Axial CT images of the brain were obtained with coronal and sagittal reformats created and rev iewed. Contrast used: None. Oral contrast used: None. FINDINGS: Brain: Extra-axial spaces: No abnormal extra-axial fluid collections. Ventricular system: Within normal limits Cerebral parenchyma: No acute intraparenchymal hemorrhage or mass effect. The erazo-white junction is well differentiated. Cerebellum: Unremarkable. Mass effect: No evidence of midline shift. Intracranial vasculature: unremarkable Soft tissues: Normal. Calvarium/osseous structures: No depressed skull fracture. Paranasal sinuses and mastoid air cells: Mild scattered paranasal sinus disease. Visualized orbits: Orbital contents are intact. IMPRESSION: No acute intracranial process.
== END 2023-04-30 15:05 | disposition left against medical advice (07) ==
LOC: EC 12:05
DX: R41.82 Altered mental status, unspecified (principal); F41.9 Anxiety disorder, unspecified; F17.200 Nicotine dependence, unspecified, uncomplicated; F12.90 Cannabis use, unspecified, uncomplicated; Z53.29 Procedure and treatment not carried out because of patient's decision for other reasons; Z20.822 Contact with and (suspected) exposure to COVID-19
CPT/HCPCS: 36415; 70450; 80053; 80320; 83605; 83735; 85025; 87635; 96360; 99285